=== PATIENT | male | born 1985 | race Two or more races ===

== ENCOUNTER 2016-10-01 18:36 | Emergency (ER) | payer MEDICAID ==
[~2016-10-01] VITALS: Ht 177.8 cm; Wt 111.8 kg
[2016-10-01] MEDS ORDERED: ONDANSETRON 2MG/ML, 2ML IVPush ONE (19:00)
[2016-10-01] MEDS ORDERED: SODIUM CHLORIDE 0.9% 1,000ML IVBOLUS ONE (19:00)
[2016-10-01] MEDS ORDERED: FAMOTIDINE 20 MG/2 ML ONE (19:00)
[2016-10-01] MEDS ORDERED: ONDANSETRON 2MG/ML, 2ML ONE (19:00)
[2016-10-01] MEDS ORDERED: FAMOTIDINE 20 MG/2 ML IVP ONE (19:00)
[2016-10-01] MEDS ORDERED: SODIUM CHLORIDE FLUSH 10ML SYR IVF ONE (19:00)
[2016-10-01 19:12] LABS: HEMATOCRIT 49.1 % (39.2-51.8); HEMOGLOBIN 16.4 g/dL (13.7-18.0)
[2016-10-01 19:27] LABS: ASPARTATE AMINO TRANSFERASE 25 U/L (15-37); BLOOD UREA NITROGEN 12 mg/dL (7-18)
[2016-10-01] MEDS ORDERED: AMIT10TA PO (19:27)
[2016-10-01] MEDS ORDERED: LISI-170 PO (19:27)
[2016-10-01] MEDS ORDERED: MORPHINE SULFATE 4 MG/ML, 1ML IVPush PRN (20:00)
[2016-10-01 20:06] LABS: GAS OBC PASS; GASTRIC PH 2 (1-7)
[2016-10-01 20:12] LABS: GASTRIC OCCULT BLD NEGATIVE (NEGATIVE)
[2016-10-01] MEDS ORDERED: MORPHINE SULFATE 4 MG/ML, 1ML ONE (20:15)
[2016-10-01 21:46] VITALS: BP 147/91
== END 2016-10-01 21:48 | disposition home or self-care (01) ==
LOC: ED 21:00
DX: G43.A0 Cyclical vomiting, in migraine, not intractable (principal); R11.0 Nausea
CPT/HCPCS: 36415; 80053; 82271; 83690; 85025; 85610; 96361; 96374; 96375; 99285; J2405; J7030; S0028

== ENCOUNTER 2016-10-04 12:29 | Emergency (ER) | payer MEDICAID ==
[~2016-10-04] VITALS: Ht 177.8 cm; Wt 110.9 kg
[~2016-10-04 12:29] MED LIST: AMIT10TA PO; LISI-170 PO
[2016-10-04] MEDS ORDERED: ONDANSETRON 2MG/ML, 2ML ONE (13:23)
[2016-10-04] MEDS ORDERED: MORPHINE SULFATE 4 MG/ML, 1ML ONE (13:23)
[2016-10-04] MEDS ORDERED: FAMOTIDINE 20 MG/2 ML ONE (13:24)
[2016-10-04] MEDS ORDERED: SODIUM CHLORIDE 0.9% 1,000ML IVBOLUS ONE (13:30)
[2016-10-04] MEDS ORDERED: ONDANSETRON 2MG/ML, 2ML IVPush ONE (13:30)
[2016-10-04] MEDS ORDERED: MORPHINE SULFATE 4 MG/ML, 1ML IVPush PRN (13:30)
[2016-10-04] MEDS ORDERED: FAMOTIDINE 20 MG/2 ML IVP ONE (13:30)
[2016-10-04] MEDS ORDERED: SODIUM CHLORIDE FLUSH 10ML SYR IVF ONE (13:30)
[2016-10-04 13:41] LABS: ASPARTATE AMINO TRANSFERASE 51 U/L (15-37); BLOOD UREA NITROGEN 11 mg/dL (7-18)
[2016-10-04 13:49] LABS: HEMOGLOBIN 16.5 g/dL (13.7-18.0); WHITE BLOOD COUNT 12.6 x10^3/uL (3.4-10)
[2016-10-04 15:07] VITALS: BP 168/87
== END 2016-10-04 15:09 | disposition home or self-care (01) ==
LOC: ED 13:08
DX: G43.A0 Cyclical vomiting, in migraine, not intractable (principal); G89.29 Other chronic pain; R10.13 Epigastric pain; R10.33 Periumbilical pain
CPT/HCPCS: 36415; 74020; 80053; 81003; 83690; 85025; 96361; 96374; 96375; 99285; J2405; J7030; S0028

== ENCOUNTER 2016-10-06 13:02 | Emergency (ER) | payer MEDICAID ==
[~2016-10-06] VITALS: Ht 177.8 cm; Wt 108.8 kg
[2016-10-06] MEDS ORDERED: HALOPERIDOL 5 MG/ML IM ONE (13:21)
[2016-10-06] MEDS ORDERED: SODIUM CHLORIDE 0.9% 1,000ML IVBOLUS ONE (13:30)
[2016-10-06] MEDS ORDERED: SODIUM CHLORIDE FLUSH 10ML SYR IVF ONE (13:30)
[2016-10-06] MEDS ORDERED: DIPHENHYDRAMINE 50 MG/ML, 1ML IVPush ONE (13:30)
[2016-10-06 13:40] LABS: HEMATOCRIT 51.8 % (39.2-51.8); HEMOGLOBIN 17.6 g/dL (13.7-18.0)
[2016-10-06 13:52] LABS: ASPARTATE AMINO TRANSFERASE 39 U/L (15-37); BLOOD UREA NITROGEN 11 mg/dL (7-18)
[2016-10-06] MEDS ORDERED: DIPHENHYDRAMINE 50 MG/ML, 1ML ONE (13:52)
[2016-10-06] MEDS ORDERED: HALOPERIDOL 5 MG/ML ONE (13:52)
[2016-10-06 15:15] VITALS: BP 142/72
== END 2016-10-06 15:19 | disposition home or self-care (01) ==
LOC: ED 15:00
DX: R10.13 Epigastric pain (principal); G43.A0 Cyclical vomiting, in migraine, not intractable; I10 Essential (primary) hypertension; Z90.49 Acquired absence of other specified parts of digestive tract
CPT/HCPCS: 36415; 74020; 80053; 83690; 85025; 85610; 96361; 96372; 96374; 99285; J1200; J1630; J7030; 96375